=== PATIENT | female | born 1995 | race Caucasian/White ===

== ENCOUNTER → 2019-07-18 | Day surgery (SDC) | payer OTHER ==
[~2019-07-18] MED LIST: IV RINGERS,LACTATED 1000ML 1,000 ML IV SCH; LIDOCAINE 2% PF 5 ML VIAL. ONE; LORA1TAB47 PO; PROPOFOL 40 ML IV ONE
[2019-07-18 12:35] VITALS: BP 118/73
--- NOTE | 2019-07-19 13:07 | PATHOLOGY ---
[place] Accession Number: [id number] . 01 Material submitted: . duodenum - DUODENAL BX'S . 01 Clinical history: . Epigastric pain . 02 Diagnosis: Small bowel, duodenum, biopsy: - No pathologic diagnosis. - Normal villous architecture. (SKM:pit; 07/19/2019) QTP 07/19/2019 1014 Local . 02 Electronically signed: . Aleksandar Garnica MD, Pathologist NPI- [id number] . 01 Gross description: . Received in formalin labeled "[place], duodenal BX's," are multiple segments of quijano soft tissue measuring 1.5 x 0.6 x 0.1 cm in aggregate dimensions. The specimen is filtered and entirely submitted in cassette A1. (TSD; 07/18/2019) TOB/TOB 07/18/2019 1655 Local . 02 Pathologist provided ICD-10: R10.13 . 02 CPT . 359010 Specimen Comment: A courtesy copy of this report has been sent to [phone] Specimen Comment: [id number] Specimen Comment: Report sent to / DR FINLEY Performed at: 01 [facility] [address], [place] [id number] MD Jesus Chapa MD Phone: [phone] Performed at: 02 [facility] [address] [place], [place] [id number] MD Gilmar Irvin MD Phone: [phone]
== END ==
LOC: ENDOS 11:09
PROVIDERS: ATTEND Internal Medicine Gastroenterology
DX: R11.2 Nausea with vomiting, unspecified (principal); K21.9 Gastro-esophageal reflux disease without esophagitis; K58.9 Irritable bowel syndrome, unspecified; F15.90 Other stimulant use, unspecified, uncomplicated; J45.909 Unspecified asthma, uncomplicated; F17.210 Nicotine dependence, cigarettes, uncomplicated; Z72.89 Other problems related to lifestyle; Z88.8 Allergy status to other drugs, medicaments and biological substances; Z98.51 Tubal ligation status
CPT/HCPCS: 43239; 81025; 88305; J2001; J2704